=== PATIENT | female | born 1990 | race Caucasian/White ===

== ENCOUNTER 2016-12-25 13:48 | Emergency (ER) | payer OTHER ==
[2016-12-25 14:15] LABS: RAPID STREP SCREEN REAGENT QC YELLOW (YELLOW)
[2016-12-25] MEDS ORDERED: SODIUM CHLORIDE 0.9% 1,000 ML IV ONE (15:40)
[2016-12-25] MEDS ORDERED: KETOROLAC 60 MG/2 ML VIAL IVP STA (15:40)
[2016-12-25 15:52] LABS: BASOPHILS % (AUTO) 0.3 %; EOSINOPHILS # (AUTO) 0.2 10^3/uL (0.0-0.7); EOSINOPHILS % (AUTO) 1.2 %; HCT - HEMATOCRIT 38.9 % (37.0-47.0); HGB - HEMOGLOBIN 13.2 g/dL (12.0-16.0); LYMPHOCYTES # (AUTO) 1.8 10^3/uL (1.5-3.5); MEAN CORPUSCULAR HEMOGLOBIN 31.8 pg (27.0-31.0); MEAN CORPUSCULAR HGB CONC 33.8 g/dL (32.0-36.0); MEAN PLATELET VOLUME 7.9 fL (7.9-10.8); MONOCYTES # (AUTO) 0.7 10^3/uL (0.0-1.0); MONOCYTES % (AUTO) 5.7 %; NEUTROPHILS # (AUTO) 10.3 10^3/uL (1.5-6.6); NEUTROPHILS % (AUTO) 78.8 %; RED BLOOD COUNT 4.14 10^6/uL (4.20-5.40); RED CELL DISTRIBUTION WIDTH 12.6 % (12.0-15.0); UNCORRECTED WHITE BLOOD COUNT 13.1 x10^3/uL; WHITE BLOOD COUNT 13.1 x10^3/uL (4.8-10.8)
[2016-12-25 16:01] LABS: MONO NEG QC NEGATIVE (Negative); MONO POS QC POSITIVE (Positive)
[2016-12-25 16:04] LABS: ALBUMIN/GLOBULIN RATIO 1.2 (1.0-2.2); BILIRUBIN,TOTAL 0.4 mg/dL (0.2-1.0); CALCIUM 9.7 mg/dL (8.5-10.3); CREATININE 0.6 mg/dL (0.4-1.0); POTASSIUM 3.5 mmol/L (3.5-5.0); TOTAL PROTEIN 7.6 g/dL (6.7-8.2)
[2016-12-25 16:08] LABS: BILIRUBIN,URINE NEGATIVE (NEGATIVE)
[2016-12-25 16:12] LABS: HCG UR QUAL NEGATIVE; UA CHARGE (STRIP ONLY) YES; UR CULTURE IF IND NOT INDICATED
[2016-12-25] MEDS ORDERED: KETOROLAC 30 MG/ML VIAL ONE (16:19)
--- NOTE | 2016-12-25 17:32 | ED Physician Documentation ---
History of Present Illness - Stated complaint Stated Complaint: THROAT SWOLLEN/HEAD PX - Chief complaint Chief Complaint: Heent - Additonal information Additional information: hx from pt recently noted lump in breast and axillary nodes, has sono scheduled then had sore throat with some white spots and swollen nodes to front and back of neck too and R ear feels clogged now a extremely bad pressure like headache and it hurts to move her neck no fever no cough Review of Systems Constitutional: reports: Myalgias. denies: Fever Throat: reports: Sore throat Respiratory: denies: Cough GI: denies: Vomiting, Diarrhea Neurologic: reports: Headache. denies: Head injury Endocrine: denies: Easy bruising / bleeding Immunocompromised: denies: Immunocompromised PD PAST MEDICAL HISTORY - Past Medical History Past Medical History: No - Past Surgical History Past Surgical History: Yes /LAST IRONER: section - Present Medications Home Medications: Ambulatory Orders Medication Instructions Recorded Confirmed Ethinyl Estradiol/Drospirenone 1 each PO DAILY 12/25/16 12/25/16 [Jayne 28 Tablet] - Allergies Allergies/Adverse Reactions: Allergies Allergy/AdvReac Type Severity Reaction Status Date / Time Sulfa (Sulfonamide Allergy Unknown Verified 12/25/16 13:57 Antibiotics) - Social History Does the pt smoke?: No Smoking Status: Never smoker Does the pt drink ETOH?: Yes Does the pt have substance abuse?: No - Immunizations Immunizations are current?: Yes PD ED PE NORMAL - Vitals Vital signs reviewed: Yes - HEENT HEENT: No: Ears normal (dull no erythema), Moist mucous membranes (erythema no exudate) - Neck Neck: Other (intially stiff neck). No: No adenopathy (ant no posterior) - Cardiac Cardiac: RRR - Respiratory Respiratory: No respiratory distress, Clear bilaterally - Abdomen Abdomen: Non tender - Neuro Neuro: Alert and oriented X 3, No motor deficit, No sensory deficit Results - Vitals Vitals: Vital Signs - 24 hr 12/25/16 13:53 Temperature 36.4 C L Heart Rate 80 Respiratory 16 Rate Blood Pressure 161/90 H O2 Saturation 100 Oxygen O2 Source Room air - Labs Labs: Laboratory Tests 12/25/16 12/25/16 12/25/16 14:00 15:34 15:46 WBC 13.1 H RBC 4.14 L Hgb 13.2 Hct 38.9 MCV 94.0 MCH 31.8 H MCHC 33.8 RDW 12.6 Plt Count 172 MPV 7.9 Neut # 10.3 H Lymph # 1.8 [place] # 0.7 Eos # 0.2 Baso # 0.0 Absolute Nucleated RBC 0.00 Nucleated RBC % 0.0 Sodium Potassium Chloride Carbon Dioxide Anion Gap BUN Creatinine Estimated GFR (MDRD) Glucose Calcium Total Bilirubin AST ALT Alkaline Phosphatase Total Protein Albumin Globulin Albumin/Globulin Ratio Lipase Urine Color YELLOW Urine Clarity CLEAR Urine pH 6.0 Ur Specific [place] <=1.005 Urine Protein NEGATIVE Urine Glucose (UA) NEGATIVE Urine Ketones NEGATIVE Urine Occult Blood NEGATIVE Urine Nitrite NEGATIVE Urine Bilirubin NEGATIVE Urine Urobilinogen 0.2 (NORMAL) Ur Leukocyte Esterase NEGATIVE Ur Microscopic Review NOT INDICATED Urine Culture Comments NOT INDICATED Urine HCG, Qual NEGATIVE Infectious [place] Assay Group A Strep Rapid Negative 12/25/16 12/25/16 15:46 15:46 WBC RBC Hgb Hct MCV MCH MCHC RDW Plt Count MPV Neut # Lymph # [place] # Eos # Baso # Absolute Nucleated RBC Nucleated RBC % Sodium 136 Potassium 3.5 Chloride 102 Carbon Dioxide 25 Anion Gap 9.0 BUN 11 Creatinine 0.6 Estimated GFR (MDRD) 119 Glucose 94 Calcium 9.7 Total Bilirubin 0.4 AST 17 ALT 13 Alkaline Phosphatase 38 L Total Protein 7.6 Albumin 4.2 Globulin 3.4 Albumin/Globulin Ratio 1.2 Lipase 23 Urine Color Urine Clarity Urine pH Ur Specific [place] Urine Protein Urine Glucose (UA) Urine Ketones Urine Occult Blood Urine Nitrite Urine Bilirubin Urine Urobilinogen Ur Leukocyte Esterase Ur Microscopic Review Urine Culture Comments Urine HCG, Qual Infectious [place] Assay NEGATIVE Group A Strep Rapid PD MEDICAL DECISION MAKING - ED course ED course: concerned about meningitis but pt did not want an LP so advised would try fluids and toradol and check mono and labs and reassess she feels much better will dc after all pt has a CO monitor Departure - Departure Disposition: 01 Home, Self Care Clinical Impression: Headache Qualifiers: Headache type: unspecified Headache chronicity pattern: acute headache Intractability: not intractable Qualified Code(s): R51 - Headache Pharyngitis Qualifiers: Pharyngitis/tonsillitis etiology: unspecified etiology Qualified Code(s): J02.9 - Acute pharyngitis, unspecified Condition: Good Instructions: ED Cephalgia Unspecified, ED Pharyngitis Viral Report Pending Follow-Up: Mishel Carrillo ARNP [Primary Care Provider] - Comments: The rapid strep was negative - an official throat culture is still pending Your labs look fine You declined a spinal tap but you are now able to move your neck much better and I think meningitis unlikely Recommend motrin and tylenol for pain and fever and rest and drink plenty of fluids Follow up for your ultrasound as scheduled And please get your blood pressure rechecked - it was high today
[2016-12-25 18:00] VITALS: BP 140/91
== END 2016-12-25 18:00 | disposition home or self-care (01) ==
LOC: ED 13:48
DX: R51 Headache (principal); J02.9 Acute pharyngitis, unspecified
CPT/HCPCS: 36415; 80053; 81001; 81003; 81025; 83690; 85025; 86308; 87070; 87086; 87430; 96361; 96374; 99283

== ENCOUNTER 2017-05-02 15:48 | Outpatient (CLI) | payer OTHER ==
[2017-05-02 19:00] LABS: BASOPHILS % (AUTO) 0.5 %; EOSINOPHILS # (AUTO) 0.2 10^3/uL (0.0-0.7); EOSINOPHILS % (AUTO) 2.4 %; HGB - HEMOGLOBIN 12.4 g/dL (12.0-16.0); LYMPHOCYTES # (AUTO) 2.5 10^3/uL (1.5-3.5); LYMPHOCYTES % (AUTO) 35.9 %; MEAN CORPUSCULAR HEMOGLOBIN 30.3 pg (27.0-31.0); MEAN CORPUSCULAR HGB CONC 33.4 g/dL (32.0-36.0); MEAN CORPUSCULAR VOLUME 90.8 fL (81.0-99.0); MEAN PLATELET VOLUME 9.1 fL (7.9-10.8); MONOCYTES # (AUTO) 0.4 10^3/uL (0.0-1.0); MONOCYTES % (AUTO) 5.6 %; NEUTROPHILS # (AUTO) 3.9 10^3/uL (1.5-6.6); NEUTROPHILS % (AUTO) 55.6 %; PLT - PLATELET COUNT 227 10^3/uL (130-450); RED BLOOD COUNT 4.09 10^6/uL (4.20-5.40); RED CELL DISTRIBUTION WIDTH 12.6 % (12.0-15.0)
[2017-05-02 19:13] LABS: CK- CREATINE KINASE 124 IU/L (22-269)
[2017-05-02 19:46] LABS: CRP - C-REACTIVE PROTEIN < 1.0 mg/dL (0-1.0)
[2017-05-04 13:42] LABS: ANA SCREEN NEGATIVE (NEGATIVE)
[2017-05-04 16:51] LABS: COMPLEMENT COMPONENT C3C 147 mg/dL (83-193); COMPLEMENT COMPONENT C4C 25 mg/dL (15-57)
[2017-05-04 18:22] LABS: CYCLIC CITRULL PEPTIDE CCP IGG <16 UNITS
== END 2017-05-02 15:49 | disposition home or self-care (01) ==
LOC: LAB.WCP 15:48
PROVIDERS: ATTEND Internal Medicine Rheumatology
DX: M25.50 Pain in unspecified joint (principal); M79.1 Myalgia; R53.83 Other fatigue
CPT/HCPCS: 36415; 82550; 85025; 85651; 86038; 86140; 86160; 86200; 86747